=== PATIENT | male | born 1950 | race Caucasian/White ===

== ENCOUNTER 2016-11-21 15:09 | Emergency (ER) | payer MEDICAID ==
[~2016-11-21] VITALS: Ht 182.9 cm; Wt 78.0 kg
[2016-11-21] MEDS ORDERED: ASPIRIN 81 MG TABLET CHEW PO ONE (15:30)
[2016-11-21] MEDS ORDERED: SODIUM CHLORIDE FLUSH 10ML SYR IVF ONE (15:30)
[2016-11-21 15:55] LABS: BLOOD UREA NITROGEN 7 mg/dL (7-18); HEMOGLOBIN 14.5 g/dL (13.7-18.0)
[2016-11-21 16:00] LABS: IS PT STATUS REG ER OR PRE ER? YES
[2016-11-21 17:02] VITALS: BP 138/77
== END 2016-11-21 17:49 | disposition home or self-care (01) ==
LOC: ED 16:46
DX: J15.9 Unspecified bacterial pneumonia (principal)
CPT/HCPCS: 36415; 71020; 80048; 82040; 84484; 85025; 93005; 99285